=== PATIENT | female | born 1950 | race Caucasian/White ===

== ENCOUNTER 2019-01-13 10:57 | Inpatient (IN) ==
[2019-01-13] MEDS ORDERED: Sennosides/Docusate Sodium TABLET PO PRN (11:07)
[2019-01-13] MEDS ORDERED: *HR* LORazepam Oral Conc 2 MG/ML PO PRN (11:07)
[2019-01-13] MEDS ORDERED: Ibuprofen 400 MG TABLET PO PRN (11:16)
[2019-01-13] MEDS ORDERED: traMADol 50 MG TABLET PO PRN (11:17)
[2019-01-13] MEDS ORDERED: MORPHINE SUL Oral CONC 10 MG/0.5 ML ORAL.SYG SL PRN (11:20)
[2019-01-13] MEDS: Metoclopramide 10 MG/10 ML UD.LIQ PO SCH ×3 (14:07→23:56)
--- NOTE | 2019-01-13 14:14 | Pallative History & Physical ---
Date of Encounter: 01/13/19 Time of Encounter: 13:00 Assessment and Plan (1) Goals of care, counseling/discussion Current visit: Yes Status: Acute Called and spoke with patient's daughter Amber, whom reports patient has fallen a few times recently. Per daughter report, patient having repeat episode of increased pain in hip yesterday and comfort pack opened, under direction of site promotion agent nurse. Patient's immediately got upset and reported that once the pack is open "within 5 days she will be gone." Explained that patient may pass away over the course of the next 5 days, but it has nothing to do with the comfort pack; verbalized understanding. Amber requested her to be called for any family needs as she is aware her sister would be frantic and is fearful her dad, in his own poor health, my attempt to drive independently. Notified Nurs ing. Amber expressed that patient's was concerned over the lack of appropriately fitting pajamas, explained not of concern at this time. Amber also expressed that it would be of great benefit for Roberta LOZADA to reach out to patient's during this time, as they have a strong [place], as she is one of the few people he will listen to at this time. Notified Traci LOZADA with [facility] of this need, whom reported would notify Roberta LOZADA. Received message from Primary RN that patient's other daughter Irene called and was very upset, wanting to speak with whomever Amber had spoken with. Return call to [place] explaining necessity for call as patient has had a change in status since last known admission and inquiring how patient had been at home. Explained change in vital signs and that although we don't think patient is immenent, that family should be aware that patient may continue deteriorate and not make it out of hospitalization; became increasingly tearful and acknowledged understanding. Inquired of visitation times, explained could visit at any time. Patient admitted Respite. (2) Left hip pain Current visit: Yes Status: Acute Roxanol, Tramadol, and Ibuprofen ordered for pain. (3) Small cell carcinoma Current visit: Yes Status: Chronic Admitted [facility]-Respite. Internal Medicine - H&P: HPI Admitted From: Home Plans for Post Hospital Care: Hospice - Home History of present illness: Ms. Luu is a 68 year old female arrived to [facility] as a Respite from [facility]. Patient known to Palliative care team from December admission. PMH: SCLC stage 4, Atrial Fibrillation, Dementia, Diabetes, Hepatitis, HLD, Osteoporosis, and Thyroid disease. Patient coming in as a Respite 5 day stay. Upon arrival for assessment, patient lying in bed with eyes closed. Patient quite lethargic, arouses with tactile stimulation. Inquired if patient had fallen recently, stated yes, would not elaborate. Patient oriented to person only. Reports it is 2017 and she is at home. No family present at bedside. Past Med Surg Social Fam HX - Past Medical History Medical history: atrial fibrillation, cancer, dementia, diabetes, hepatitis, hyperlipidemia, osteoporosis, thyroid disease Psychiatric history: depression - Past Surgical History Surgical History: appendectomy, breast surgery, cholecystectomy, hysterectomy, knee replacement, other, pacemaker Additional surgical history: bladder tuck, polyps from voice box, tonisls and adenoids, lymph node resection, sinus, cervical fusion C5 and c6, polyps removed from colon. - Social History Smoking Status: Current every day smoker Smokeless Tobacco Status: No Alcohol use: none Drug use: none - Family History Father Living Status: Hx Family Cardiac Disorders: Yes Internal Medicine - H&P: Meds Pravastatin Sodium [Pravachol] 80 mg PO HS 07/24/17 [History] Sotalol [Betapace] 80 mg PO BID 07/24/17 [History] Magic Mouthwash [Magic Mouthwash BLM] 10 ml PO QID PRN #240 ml 11/23/17 [Rx] Ibuprofen [Advil] 400 mg PO Q6H PRN 08/09/18 [History] Levothyroxine [Synthroid] 125 mcg PO 0630 #30 tablet 08/09/18 [Rx] FLUoxetine HCl [Prozac] 40 mg PO DAILY #30 capsule 09/06/18 [Rx] Metoclopramide HCl 5 mg PO QIDAC #120 tablet 12/12/18 [Rx] Cyanocobalamin (Vitamin B-12) [Vitamin B-12] 1,000 mcg PO DAILY 12/26/18 [History] Trazodone HCl 100 mg PO HS PRN 12/26/18 [History] DiphenhydraMINE [Benadryl] 25 mg PO Q6HR PRN 30 Days #60 capsule 12/30/18 [Rx] Sennosides/Docusate Sodium [Senna Plus] 1 each PO BID 30 Days #60 tablet 12/30/18 [Rx] Allergy/AdvReac Type Severity Reaction Status Date / Time aspirin [ASA] Allergy Hives Verified 12/26/18 18:05 codeine Allergy Anaphylaxis Verified 12/26/18 18:05 Iodinated Contrast- Oral and Allergy Hives Verified 12/26/18 18:05 IV Dye Sulfa (Sulfonamide Allergy Hives Verified 12/26/18 18:05 Antibiotics) acetaminophen [From Percocet] AdvReac Vomiting Verified 12/26/18 18:05 morphine AdvReac Vomiting Verified 12/26/18 18:05 nalbuphine [From Nubain] AdvReac Vomiting Verified 12/26/18 18:05 oxycodone [Oxycodone] AdvReac Vomiting Verified 12/26/18 18:05 propoxyphene [From Darvon] AdvReac Vomiting Verified 12/26/18 18:05 ROS unobtainable: due to mental status - Constitutional Constitutional ROS PAL: frequent falls (per daughter) - Musculoskeletal Musculoskeletal ROS IM: arthralgias, myalgias (hip per daughter) Palliative Care-Exam - Constitutional Vitals: Temp Pulse Resp BP Pulse Ox 97.7 F 63 7 80/47 92 01/13/19 13:03 01/13/19 13:03 01/13/19 13:03 01/13/19 13:03 01/13/19 13:03 General appearance: Present: no acute distress, thin - Head Head Exam: Absent: atraumatic - Expanded Head Exam Head exam expanded IM: Present: abrasion, contusion, hematoma, raccoon eyes. Absent: general tenderness - Eye Eye exam: Present: normal appearance. Absent: periorbital swelling, periorbital tenderness - ENT ENT exam: Present: mucous membranes dry, normal external ear exam - Expanded ENT Exam Mouth Exam: Absent: drooling - Neck Neck exam: Present: full ROM, normal inspection. Absent: tenderness - Expanded Neck Exam Neck exam: Absent: anterior neck swelling, tenderness - Respiratory Respiratory exam: Present: CTAB - Cardiovascular Cardiovascular exam: Present: +S1, +S2 - GI/Abdominal Exam GI/Abdominal exam: Present: diminished bowel sounds, soft. Absent: tenderness - Rectal Rectal exam: Present: deferred - Extremities Exam Extremities exam: Present: normal inspection. Absent: calf tenderness, pedal edema, tenderness - Back Exam Back exam: Present: normal inspection. Absent: tenderness - Neurological Exam Neurological exam: Present: alert, altered. Absent: oriented X3 - Expanded Neurological Exam Patient oriented to: Present: person. Absent: place, time Coma Scale Eye Opening: To Voice Coma Scale Motor Response: Withdraws to Pain Coma Scale Verbal Response: Confused Coma Scale Total: 11 - Psychiatric Psychiatric exam: Present: flat affect. Absent: anxious - Skin Skin exam: Present: dry, intact, pallor. Absent: mottled, normal color (Generalized bruising.) Palliative Quality Palliative Quality: Screen for Code Status: Yes, Screen for Goals of Care: Yes, Screen for Pain: Yes, If Pain Regimen Started, Initiate Bowel Regimen: NA, Screen for Nausea/Vomitting: Yes Code Status: 01/13/19 11:07 Resuscitation Status: Active [RES] Routine Comment: Resuscitation Status: [id number] Resuscitation Status: Active [RES] Routine Comment: Resuscitation Status: DNR-Comfort Care
[2019-01-13] MEDS: traZODone 50 MG TABLET PO SCH (20:43)
[2019-01-14] MEDS: Metoclopramide 10 MG/10 ML UD.LIQ PO SCH ×4 (06:43→20:47)
--- NOTE | 2019-01-14 08:50 | Palliative Progress Note ---
Date of Encounter: 01/14/19 Time of Encounter: 08:40 - Assessment and plan (1) Left hip pain Current Visit: Yes Status: Acute Assessment and plan: Continue current pain medication and monitor effectiveness. Has not utilized any since admission. (2) Goals of care, counseling/discussion Current Visit: Yes Status: Acute Assessment and plan: Continue current respite stay. She is quite hypotensive since admission. Will D/C Sotalol. (3) Small cell carcinoma Current Visit: Yes Status: Chronic - Time Spent With Patient Total time spent is greater than 50% in coordination of care (as documented) at patient's floor/unit and/or counseling patient: - Subjective Interval history: Patient awake, sipping coffee on my arrival. Alert to name only. C/o some moderate hip pain, but overall appears in no distress. Jaundiced. Hypotensive with BP 65/38 this am. Heart rate 60. No family present. - Constitutional Vitals: Abnormal lab results POC Glucose 123 mg/dL (70-99) H 01/13/19 19:47 General appearance: Present: no acute distress, thin - Head Additional comments: Old bruising noted to left eye and forehead - Respiratory Respiratory exam: Present: decreased breath sounds - Cardiovascular Cardiovascular exam: Present: +S1, +S2 - GI/Abdominal GI/Abdominal exam: Present: distended, soft - Extremities Exam Additional comments: Scattered areas of ecchymosis and old bruising on all extremities. - Neurological Exam Neurological exam: Present: alert Additional comments: Oriented to name only. Attempts to follow very simple commands. - Skin Additional comments: Jaundiced. Skin warm/dry Palliative Quality Palliative Quality: Screen for Code Status: Yes, Screen for Goals of Care: Yes, Screen for Pain: Yes, If Pain Regimen Started, Initiate Bowel Regimen: NA, Screen for Nausea/Vomitting: Yes Code Status: 01/13/19 11:07 Resuscitation Status: Active [RES] Routine Comment: Resuscitation Status: [id number] Resuscitation Status: Active [RES] Routine Comment: Resuscitation Status: DNR-Comfort Care - Labs Labs: Laboratory Results - last 24 hr 01/13/19 01/13/19 13:12 19:47 POC Glucose 127 H 123 H Consult Discharge Plan - Plan Referrals: Jr Chapa MD [Primary Care Provider] -
[2019-01-14] MEDS ORDERED: traMADol 50 MG TABLET PO PRN (08:54)
[2019-01-14] MEDS ORDERED: Ibuprofen 400 MG TABLET PO PRN (09:35)
[2019-01-14] MEDS: predniSONE 20 MG TABLET PO SCH (09:50)
[2019-01-14] MEDS: FLUoxetine 20 MG CAPSULE PO SCH (09:50)
[2019-01-14] MEDS: MORPHINE SUL Oral CONC 10 MG/0.5 ML ORAL.SYG SL PRN ×4 (09:59→20:48)
[2019-01-14] MEDS: traZODone 50 MG TABLET PO SCH (20:47)
[2019-01-15] MEDS: MORPHINE SUL Oral CONC 10 MG/0.5 ML ORAL.SYG SL PRN ×7 (00:56→23:13)
[2019-01-15] MEDS: Metoclopramide 10 MG/10 ML UD.LIQ PO SCH ×5 (05:49→22:29)
[2019-01-15] MEDS: FLUoxetine 20 MG CAPSULE PO SCH (08:31)
[2019-01-15] MEDS: predniSONE 20 MG TABLET PO SCH (08:33)
--- NOTE | 2019-01-15 08:54 | Palliative Progress Note ---
Date of Encounter: 01/15/19 Time of Encounter: 08:35 - Assessment and plan (1) Goals of care, counseling/discussion Current Visit: Yes Status: Acute Assessment and plan: Patient to remain Respite stay at this time. (2) Left hip pain Current Visit: Yes Status: Acute Assessment and plan: Patient has required 7 doses of Roxanol in the last 24 hours. Discontinued Tramadol. Changed Roxanol 5 mg to Moderate pain regimen and added Roxanol 10 mg to severe pain regimen. (3) Small cell carcinoma Current Visit: Yes Status: Chronic Assessment and plan: Admitted [facility]Respite. - Time Spent With Patient Total time spent is greater than 50% in coordination of care (as documented) at patient's floor/unit and/or counseling patient: - Subjective Interval history: Patient sitting up in bed with eyes open, with breakfast tray in front of her. Patient is alert and oriented times 2, disoriented to place. No family present at bedside. Patient reports continued left hip pain, has taken 7 doses of Roxanol in the last 24 hours, continues to rate pain as "pretty bad." Patient denies anxiety, nausea, vomiting, and dyspnea at this time. Patient has received 1 dose of Phenergan in the last 24 hours. - Constitutional Vitals: Abnormal lab results POC Glucose 123 mg/dL (70-99) H 01/13/19 19:47 General appearance: Present: cooperative, no acute distress, thin - Head Head exam: Absent: atraumatic (patient has contusions to face from recent falls, prior to admission. ) - Expanded Head Exam Head exam: Present: contusion, raccoon eyes - Eye Eye exam: Present: normal appearance, PERRL. Absent: nystagmus, periorbital swelling, periorbital tenderness Pupils: Present: normal accommodation. Absent: fixed - ENT ENT exam: Present: mucous membranes dry, normal external ear exam - Neck Neck exam: Present: full ROM, normal inspection - Respiratory Respiratory exam: Present: decreased breath sounds (with some pauses.), rhonchi. Absent: respiratory distress, wheezes - Cardiovascular Cardiovascular exam: Present: +S1, +S2 - GI/Abdominal GI/Abdominal exam: Present: hypoactive bowel sounds, soft. Absent: tenderness - Rectal Rectal exam: Present: deferred - Expanded Exam Female exam: Present: deferred - Extremities Exam Extremities exam: Present: normal inspection. Absent: pedal edema - Back Exam Back exam: Present: normal inspection - Neurological Exam Neurological exam: Present: alert, altered, strengths equal and symetr throughout. Absent: oriented X3 - Psychiatric Psychiatric exam: Present: flat affect - Skin Skin exam: Present: dry, pallor, warm Palliative Quality Palliative Quality: Screen for Code Status: Yes, Screen for Goals of Care: Yes, Screen for Pain: Yes, If Pain Regimen Started, Initiate Bowel Regimen: NA, Screen for Nausea/Vomitting: Yes Code Status: 01/13/19 11:07 Resuscitation Status: Active [RES] Routine Comment: Resuscitation Status: [id number] Resuscitation Status: Active [RES] Routine Comment: Resuscitation Status: DNR-Comfort Care Palliative Scale - Palliative Performance Scale How ambulatory is this patient?: Mainly sit / lie What is patient's level of activity and evidence of disease?: Unable hobby/housework, Significant disease How much self-care assistance does patient require?: Considerable assistance required How much oral intake does the patient have?: Minimal to sips What is this patient's level of consciousness?: Full or drowsy with or without confusion Palliative Performance Score: 30 % Consult Discharge Plan - Plan Referrals: Jr Chapa MD [Primary Care Provider] -
[2019-01-15] MEDS: traZODone 50 MG TABLET PO SCH (22:28)
[2019-01-16] MEDS: MORPHINE SUL Oral CONC 10 MG/0.5 ML ORAL.SYG SL PRN ×5 (05:40→22:54)
[2019-01-16] MEDS: FLUoxetine 20 MG CAPSULE PO SCH (09:15)
[2019-01-16] MEDS: Metoclopramide 10 MG/10 ML UD.LIQ PO SCH ×4 (09:15→20:52)
[2019-01-16] MEDS: predniSONE 20 MG TABLET PO SCH (09:15)
--- NOTE | 2019-01-16 09:30 | Palliative Progress Note ---
Date of Encounter: 01/16/19 Time of Encounter: 09:25 - Assessment and plan (1) Left hip pain Current Visit: Yes Status: Acute Assessment and plan: Has 5-10mg of Roxanol ordered if needed. Has utilized the 5mg x5 over the past 24 hours. Has not required the 10mg and is comfortable this am. Continue and monitor (2) Goals of care, counseling/discussion Current Visit: Yes Status: Acute Assessment and plan: Continue respite stay. At this point, discharge is scheduled for Sunday. Although her condition is poor, symptoms are currently well controlled with current medications. Although mental status waxes/wanes, she has periods of alertness and can make her needs known. Still taking po fluids. Sister Aileen is at bedside, and does express concern about her going home, that can no longer care for her. Did communicate her concerns to computer networker and updated on current clinical status. (3) Small cell carcinoma Current Visit: Yes Status: Chronic - Time Spent With Patient Total time spent is greater than 50% in coordination of care (as documented) at patient's floor/unit and/or counseling patient: - Subjective Interval history: Patient resting quietly, sister at bedside. Vitals stable. Denies pain or discomfort. Was able to tell nurse "I will let you know when I need medicine". - Constitutional Vitals: Abnormal lab results POC Glucose 123 mg/dL (70-99) H 01/13/19 19:47 General appearance: Present: no acute distress - Head Additional comments: Old bruising noted to face, primarily forehead and left eye - Respiratory Respiratory exam: Present: decreased breath sounds Additional comments: Shallow inspiratory effort - Cardiovascular Cardiovascular exam: Present: irregular rhythm - GI/Abdominal GI/Abdominal exam: Present: diminished bowel sounds, distended, soft - Additional comments: Rebolledo with dk yellow urine - Skin Additional comments: Multiple areas of old bruising and ecchymosis over upper and lower extremities. Scattered petechiae also noted. Palliative Quality Palliative Quality: Screen for Code Status: Yes, Screen for Goals of Care: Yes, Screen for Pain: Yes, If Pain Regimen Started, Initiate Bowel Regimen: NA, Screen for Nausea/Vomitting: Yes Code Status: 01/13/19 11:07 Resuscitation Status: Active [RES] Routine Comment: Resuscitation Status: [id number] Resuscitation Status: Active [RES] Routine Comment: Resuscitation Status: DNR-Comfort Care Palliative Scale - Palliative Performance Scale How ambulatory is this patient?: Mainly sit / lie What is patient's level of activity and evidence of disease?: Unable hobby/housework, Significant disease How much self-care assistance does patient require?: Considerable assistance required How much oral intake does the patient have?: Minimal to sips What is this patient's level of consciousness?: Full or drowsy with or without confusion Palliative Performance Score: 30 % Consult Discharge Plan - Plan Referrals: Jr Chapa MD [Primary Care Provider] -
[2019-01-16] MEDS: traZODone 50 MG TABLET PO SCH (20:52)
[2019-01-17] MEDS: FLUoxetine 20 MG CAPSULE PO SCH (08:05)
[2019-01-17] MEDS: predniSONE 20 MG TABLET PO SCH (08:05)
[2019-01-17] MEDS: Metoclopramide 10 MG/10 ML UD.LIQ PO SCH ×4 (08:05→20:00)
--- NOTE | 2019-01-17 09:13 | Palliative Progress Note ---
Date of Encounter: 01/17/19 Time of Encounter: 08:40 - Assessment and plan (1) Left hip pain Current Visit: Yes Status: Acute Assessment and plan: Patient has required 4 doses of Roxanol in the last 24 hours. Per family report, pain well controlled. Continue current pain regimen. (2) Goals of care, counseling/discussion Current Visit: Yes Status: Acute Assessment and plan: Complete Respite Sunday with discharge plan to return home with [facility], alongside family care. (3) Small cell carcinoma Current Visit: Yes Status: Chronic - Time Spent With Patient Total time spent is greater than 50% in coordination of care (as documented) at patient's floor/unit and/or counseling patient: - Subjective Interval history: Patient lying in bed with eyes closed upon arrival for assessment. Patient sleeping at this time. Sister (Aileen) present at bedside reports patient had a good nights rest after receiving Roxanol 10 mg dose overnight. Vital signs remain consistent, except Oxygen saturation has decreased slightly while patient resting. Patient has received 3 doses of Roxanol 5 mg and 1 dose of Roxanol 10 mg in the last 24 hours. - Constitutional Vitals: Abnormal lab results POC Glucose 123 mg/dL (70-99) H 01/13/19 19:47 General appearance: Present: no acute distress, thin - Head Head exam: Absent: normal inspection (Old Bruising noted to face, primarily forehead and left eye.) - Eye Eye exam: Absent: periorbital swelling, periorbital tenderness - ENT ENT exam: Present: mucous membranes dry, normal external ear exam - Neck Neck exam: Present: normal inspection - Respiratory Respiratory exam: Present: decreased breath sounds (Shallow) - Cardiovascular Cardiovascular exam: Present: irregular rhythm - GI/Abdominal GI/Abdominal exam: Present: diminished bowel sounds, distended, soft. Absent: tenderness - Rectal Rectal exam: Present: deferred - Additional comments: Rebolledo with dark urine noted. - Extremities Exam Extremities exam: Present: normal inspection. Absent: calf tenderness, pedal edema - Neurological Exam Neurological exam: Absent: facial droop, speech deficit - Psychiatric Psychiatric exam: Present: flat affect Palliative Quality Palliative Quality: Screen for Code Status: Yes, Screen for Goals of Care: Yes, Screen for Pain: Yes, If Pain Regimen Started, Initiate Bowel Regimen: NA, Screen for Nausea/Vomitting: Yes Code Status: 01/13/19 11:07 Resuscitation Status: Active [RES] Routine Comment: Resuscitation Status: [id number] Resuscitation Status: Active [RES] Routine Comment: Resuscitation Status: DNR-Comfort Care Palliative Scale - Palliative Performance Scale How ambulatory is this patient?: Mainly sit / lie What is patient's level of activity and evidence of disease?: Unable hobby/housework, Significant disease How much self-care assistance does patient require?: Considerable assistance required How much oral intake does the patient have?: Minimal to sips What is this patient's level of consciousness?: Full or drowsy with or without confusion Palliative Performance Score: 30 % Consult Discharge Plan - Plan Referrals: Jr Chapa MD [Primary Care Provider] -
[2019-01-17] MEDS: traZODone 50 MG TABLET PO SCH (20:00)
[2019-01-18 07:30] VITALS: BP 102/62
--- NOTE | 2019-01-18 09:07 | Discharge Summary ---
Date of Encounter: 01/18/19 Time of Encounter: 09:10 - Discharge Diagnosis (1) Small cell carcinoma Priority: Primary Status: Chronic (2) Left hip pain Priority: Secondary Status: Resolved - Hospital Course Hospital course: Ms. Luu is a 68 year old female that has metastatic lung cancer under [place] hospice care at home who was admitted for 5 day respite stay. Patient's condition does continue to decline, less responsive and minimal oral intake. Initially she was requiring increased Roxanol doses, however, over the past 48 hours she has used little. She will be transported back to her home in [facility] later this afternoon. - Time Spent with Patient Total time spent providing and/or coordinating discharge services: Less than 30 minutes - Discharge Medications Prescriptions: New MORPHINE SUL Oral CONC [Roxanol Oral Conc] 5 mg SL Q3H PRN 4 Days #15 ml PRN Reason: Dyspnea/pain No Action Sotalol [Betapace] 80 mg PO BID Trazodone HCl 100 mg PO HS Cyanocobalamin (Vitamin B-12) [Vitamin B-12] 1,000 mcg PO DAILY Acetaminophen [Tylenol 650mg SUPP] 650 mg RC Q6H PRN PRN Reason: MILD PAIN/ FEVER Bisacodyl [Gentle Laxative] 10 mg RC DAILY PRN PRN Reason: Constipation DiphenhydraMINE [Benadryl] 25 mg PO Q6HR PRN PRN Reason: Itching/ALLERGIES FLUoxetine HCl [Prozac] 40 mg PO DAILY Haloperidol Oral Conc [Haldol] 1 mg PO Q6H PRN PRN Reason: Agitation Hyoscyamine SL [Levsin SL] 0.125 mg SL Q4H PRN PRN Reason: Secretions Ibuprofen [Ibu] 400 mg PO Q6H PRN PRN Reason: PAIN/FEVER Levothyroxine [Synthroid] 125 mcg PO DAILY LORazepam [Ativan] 0.5 mg PO Q6H PRN PRN Reason: Anxiety/ AGGITATION LORazepam [Lorazepam Intensol] 0.5 mg PO Q6H PRN PRN Reason: Anxiety Magic Mouthwash [Magic Mouthwash BLM] 10 ml PO QID PRN PRN Reason: DYSPHGIA Metoclopramide HCl 5 mg PO QID Morphine Oral CONC [Roxanol] 0.25 ml PO Q3H PRN PRN Reason: Pain Polyethylene Glycol 3350 [MiraLax bowel prep] 17 gm PO DAILY PRN PRN Reason: Constipation Pravastatin Sodium [Pravachol] 80 mg PO HS predniSONE [PredniSONE] 10 mg PO TAPER Prochlorperazine Maleate [Compazine] 10 mg PO Q6H PRN PRN Reason: NAUSEA/VOMITING Promethazine [Phenergan] 25 - 50 mg PO Q6H PRN PRN Reason: Nausea Sennosides/Docusate Sodium [Senna Plus] 1 - 4 tab PO BID PRN PRN Reason: Constipation Tramadol HCl [Ultram] 100 mg PO Q4H PRN PRN Reason: Pain Home Medications: Cyanocobalamin (Vitamin B-12) [Vitamin B-12] 1,000 mcg PO DAILY 12/26/18 [History] Acetaminophen [Tylenol 650mg SUPP] 650 mg RC Q6H PRN 01/14/19 [History] Bisacodyl [Gentle Laxative] 10 mg RC DAILY PRN 01/14/19 [History] DiphenhydraMINE [Benadryl] 25 mg PO Q6HR PRN 01/14/19 [History] Haloperidol Oral Conc [Haldol] 1 mg PO Q6H PRN 01/14/19 [History] Hyoscyamine SL [Levsin SL] 0.125 mg SL Q4H PRN 01/14/19 [History] Ibuprofen [Ibu] 400 mg PO Q6H PRN 01/14/19 [History] LORazepam [Ativan] 0.5 mg PO Q6H PRN 01/14/19 [History] LORazepam [Lorazepam Intensol] 0.5 mg PO Q6H PRN 01/14/19 [History] Levothyroxine [Synthroid] 125 mcg PO DAILY 01/14/19 [History] Magic Mouthwash [Magic Mouthwash BLM] 10 ml PO QID PRN 01/14/19 [History] Morphine Oral CONC [Roxanol] 0.25 ml PO Q3H PRN 01/14/19 [History] Polyethylene Glycol 3350 [MiraLax bowel prep] 17 gm PO DAILY PRN 01/14/19 [History] Prochlorperazine Maleate [Compazine] 10 mg PO Q6H PRN 01/14/19 [History] Promethazine [Phenergan] 25 - 50 mg PO Q6H PRN 01/14/19 [History] Sennosides/Docusate Sodium [Senna Plus] 1 - 4 tab PO BID PRN 01/14/19 [History] MORPHINE SUL Oral CONC [Roxanol Oral Conc] 5 mg SL Q3H PRN 4 Days #15 ml 01/17/19 [Rx] Allergies/Adverse Reactions: Allergy/AdvReac Type Severity Reaction Status Date / Time aspirin [ASA] Allergy Hives Verified 12/26/18 18:05 codeine Allergy Anaphylaxis Verified 12/26/18 18:05 Iodinated Contrast- Oral and Allergy Hives Verified 12/26/18 18:05 IV Dye Sulfa (Sulfonamide Allergy Hives Verified 12/26/18 18:05 Antibiotics) acetaminophen [From Percocet] AdvReac Vomiting Verified 12/26/18 18:05 morphine AdvReac Vomiting Verified 12/26/18 18:05 nalbuphine [From Nubain] AdvReac Vomiting Verified 12/26/18 18:05 oxycodone [Oxycodone] AdvReac Vomiting Verified 12/26/18 18:05 propoxyphene [From Darvon] AdvReac Vomiting Verified 12/26/18 18:05 Internal Medicine - DS: Prov Date of admission: 01/13/19 12:02 Primary care physician: Jr Chapa MD Consults: 01/13/19 11:07 Consult to Palliative Care [CONS] Routine Comment: Consulting Provider: Palliative Care Yarely Reason for Consult: Respite (5 day). Call Completed: No Internal Medicine - DS: Exam - Constitutional Vitals: Vital Signs Temp Pulse Resp BP Pulse Ox 01/18/19 07:27 99.6 F 106 18 102/62 78 01/17/19 19:51 98.0 F 82 81/49 91 Intake and Output 01/17/19 01/18/19 01/18/19 23:59 07:59 15:59 Intake Total 0 / 0 0 / 0 Output Total 175 / 175 Balance -175 / -175 0 / 0 Intake: Oral 0 / 0 0 / 0 Output: Catheter 175 / 175 General appearance: no acute distress - Respiratory Respiratory exam: Present: decreased breath sounds, CTAB - Cardiovascular Cardiovascular exam: Present: irregular rhythm - GI/Abdominal GI/Abdominal exam: Present: diminished bowel sounds, distended - Additional comments: [place] with dk nikolas urine - Extremities Exam Extremities exam: Present: normal capillary refill, normal inspection - Neurological Exam Additional comments: Opens eyes occasionally to tactile stimulation during my visit. No verbal response. Does not follow commands - Skin Skin exam: Present: dry, pallor, warm - Patient Status Disposition: Hospice - Home Condition: Serious Functional capacity at discharge: bed bound Overall status at discharge: patient is not back to baseline - Discharge Instructions Follow Up With: Jr Chapa MD [Primary Care Provider] -
[2019-01-18] MEDS: FLUoxetine 20 MG CAPSULE PO SCH (10:10)
[2019-01-18] MEDS: predniSONE 20 MG TABLET PO SCH (10:11)
[2019-01-18] MEDS: Metoclopramide 10 MG/10 ML UD.LIQ PO SCH ×2 (10:11→11:37)
[2019-01-18] MEDS: MORPHINE SUL Oral CONC 10 MG/0.5 ML ORAL.SYG SL PRN ×2 (14:08→15:44)
== END 2019-01-18 15:52 | disposition hospice, home (50) | DRG 951 ==
LOC: 2ANU 12:02
PROVIDERS: ADMIT Internal Medicine Hospice and Palliative Medicine; ATTEND Internal Medicine Hospice and Palliative Medicine